=== PATIENT | male | born 1990 | race Two or more races ===

== ENCOUNTER 2016-06-09 15:42 | Emergency (ER) | payer OTHER ==
[~2016-06-09] VITALS: Ht 162.6 cm; Wt 58.1 kg
[~2016-06-09 15:42] MED LIST: AMOXICILLIN500 MG ORAL; ANUSOL-HC25 MG RECTAL; NKM; ROBITUSSIN COU118 M4 PO; UNOBMED; [UNRECOGNIZED DRUG - OTHER] RECTAL
[2016-06-09 16:28] VITALS: BP 105/69
[2016-06-09 16:44] LABS: BASOPHILS % (AUTO) 1.9 % (0.0-2.0); EOSINOPHILS % (AUTO) 0.8 % (0.0-3.0); LYMPHOCYTES % (AUTO) 31.2 % (20.0-45.0); MEAN CORPUSCULAR VOLUME 86 FL (80-99); MEAN PLATELET VOLUME 7.1 FL (6.5-10.1); MONOCYTES % (AUTO) 10.4 % (1.0-10.0); NEUTROPHILS % (AUTO) 55.7 % (45.0-75.0); PLATELET COUNT 231 K/UL (150-450); RED CELL DISTRIBUTION WIDTH 15.7 % (11.6-14.8)
[2016-06-09 16:51] LABS: ALANINE AMINOTRANSFERASE 17 U/L (3-41); ALBUMIN/GLOBULIN RATIO 1.2 (1.0-2.7); ANION GAP 18 (5-15); ASPARTATE AMINO TRANSFERASE 20 U/L (5-40); CALCIUM 9.1 mg/dL (8.6-10.2); CARBON DIOXIDE 20 mEQ/L (20-30); CHLORIDE 96 mEQ/L (98-107); CREATININE 0.8 mg/dL (0.7-1.2); GLOMERULAR FILTRATION RATE > 60 mL/min (>60); HEMOLYSIS 37; POTASSIUM 3.9 mEQ/L (3.4-4.9); SODIUM 134 mEQ/L (135-145); TOTAL PROTEIN 7.1 g/dL (6.6-8.7); TROPONIN I < 0.30 ng/mL (<=0.30)
[2016-06-09 17:07] LABS: BILIRUBIN,DIRECT 0.3 mg/dL (0.1-0.3)
[2016-06-09 17:14] LABS: MEAN CORPUSCULAR HEMOGLOBIN 25.8 PG (27.0-31.0); MEAN CORPUSCULAR HGB CONC 33.3 G/DL (32.0-36.0)
[2016-06-09 17:51] LABS: CKMB < 1.5 ng/mL (< 6.7)
[2016-06-09 17:56] VITALS: BP 106/75
[2016-06-09 18:02] VITALS: BP 106/75
--- NOTE | 2016-06-10 00:44 | Emergency Room Report ---
History of Present Illness General Chief Complaint: Dyspnea/Respdistress Source: Patient Present Illness HPI The patient is a 25-year-old male who presented after increased difficulty breathing. The patient had a known history of cyanotic heart disease status post repair. Patient cannot state what kind of surgery he had previously. The patient states he normally uses oxygen however he had run out of his oxygen tanks. Allergies: Coded Allergies: Pork (Verified Allergy, Unknown, 06/09/16) Patient History Reviewed Nursing Documentation: PMH: Agreed, PSxH: Agreed Nursing Documentation-PMH Hx Cardiac Problems: Yes - Heart surgery 1999 Review of Systems All Other Systems: negative except mentioned in HPI Physical Exam Vital Signs Date Time Temp Pulse Resp B/P Pulse Ox O2 Delivery O2 Flow Rate FiO2 06/09/16 15:50 100 20 105/69 81 Nasal Cannula 2.0 06/09/16 16:28 98.0 Sp02 EP Interpretation: reviewed, normal General Appearance: normal inspection, well appearing, no apparent distress, alert, GCS 15 Head: atraumatic ENT: normal ENT inspection, hearing grossly normal, normal voice Neck: normal inspection, full range of motion, supple, no bony tend Respiratory: normal inspection, lungs clear, normal breath sounds, no respiratory distress, no retraction, no wheezing Cardiovascular #1: regular rate, rhythm, no edema Gastrointestinal: normal inspection, normal bowel sounds, non tender, soft, no guarding, no hernia Genitourinary: no CVA tenderness Musculoskeletal: normal inspection, back normal, normal range of motion Neurologic: normal inspection, alert, oriented x3, responsive, public works manager III-XII nml as tested, speech normal Psychiatric: normal inspection, judgement/insight normal, mood/affect normal Skin: normal inspection, normal color, no rash Medical Decision Making Diagnostic Impression: Primary Impression: Respiratory distress Additional Impression: Congenital heart disease ER Course The patient presented for shortness of breath.Differential included but was not limited to anemia, pneumonia, pneumothorax, myocardial infarction, pericardial effusion, congestive heart failure, acidosis. Because of complexity of patient' s case laboratory testing and imaging studies were ordered. The patient was noted to be polycythemic consistent with his prior history of cardiac disease. The patient started on supplemental oxygen. the patient was offered admission.The patient was noted to have a low oxygen saturation which did not resolve with supplemental oxygen. The patient appears to have some cyanotic heart disease which is unclear of type .The patient was advised risk benefits alternatives of leaving AGAINST MEDICAL ADVICE and he indicated understanding and all questions are answered patient still continued want to leave and signed AGAINST MEDICAL ADVICE. Despite risks including but not limited to disability and worsening of current lifestyle. Labs Test 06/09/16 16:20 White Blood Count 6.0 K/UL (4.8-10.8) Red Blood Count 9.60 M/UL (4.70-6.10) Hemoglobin 24.8 G/DL (14.2-18.0) Hematocrit 74.4 % (42.0-52.0) Mean Corpuscular Volume 86 FL (80-99) Mean Corpuscular Hemoglobin 25.8 PG (27.0-31.0) Mean Corpuscular Hemoglobin Concent 33.3 G/DL (32.0-36.0) Red Cell Distribution Width 15.7 % (11.6-14.8) Platelet Count 231 K/UL (150-450) Mean Platelet Volume 7.1 FL (6.5-10.1) Neutrophils (%) (Auto) 55.7 % (45.0-75.0) Lymphocytes (%) (Auto) 31.2 % (20.0-45.0) Monocytes (%) (Auto) 10.4 % (1.0-10.0) Eosinophils (%) (Auto) 0.8 % (0.0-3.0) Basophils (%) (Auto) 1.9 % (0.0-2.0) Sodium Level 134 mEQ/L (135-145) Potassium Level 3.9 mEQ/L (3.4-4.9) Chloride Level 96 mEQ/L (98-107) Carbon Dioxide Level 20 mEQ/L (20-30) Anion Gap 18 (5-15) Blood Urea Nitrogen 14 mg/dL (7-23) Creatinine 0.8 mg/dL (0.7-1.2) Estimat Glomerular Filtration Rate > 60 mL/min (>60) Glucose Level 119 mg/dL (74-106) Calcium Level 9.1 mg/dL (8.6-10.2) Total Bilirubin 1.7 mg/dL (0.0-1.2) Direct Bilirubin 0.3 mg/dL (0.1-0.3) Aspartate Amino Transf (AST/SGOT) 20 U/L (5-40) Alanine Aminotransferase (ALT/SGPT) 17 U/L (3-41) Alkaline Phosphatase 84 U/L (40-129) Total Creatine Kinase 56 U/L (38-174) Creatine Kinase MB < 1.5 ng/mL (< 6.7) Creatine Kinase MB Relative Index Troponin I < 0.30 ng/mL (<=0.30) Pro-B-Type Natriuretic Peptide 174 pg/mL (0-125) Total Protein 7.1 g/dL (6.6-8.7) Albumin 3.9 g/dL (3.5-5.2) Globulin 3.2 g/dL Albumin/Globulin Ratio 1.2 (1.0-2.7) EKG Diagnostic Results Rate: normal Rhythm: NSR ST Segments: no acute changes Rhythm Strip Diag. Results EP Interpretation: yes Rhythm: NSR, no PVC's, no ectopy Chest X-Ray Diagnostic Results EP Interpretation: No Findings: no effusion, no pneumothorax, no acute cardiopulmonary disease Number of Views: 1 Last Vital Signs Date Time Temp Pulse Resp B/P Pulse Ox O2 Delivery O2 Flow Rate FiO2 06/09/16 18:02 98.0 79 20 106/75 85 Room Air 2.0 Status: unchanged Disposition: AGAINST MEDICAL ADVICE Condition: Serious Referrals: NON PHYSICIAN (PCP) Jeancarlos Palmer Jun 10, 2016 00:44
--- NOTE | 2016-06-10 13:03 | Diagnostic Imaging Report ---
Indication: Dyspnea Comparison: None A single view chest radiograph was obtained. Findings: Abnormal right paratracheal density demonstrated. Patient has had prior mediastinal surgery with surgical clips noted. There is a single sternotomy projected over the upper sternum. The heart is mildly enlarged. Orientation of the aorta is difficult to ascertain on this exam. The aorta may be right-sided. Suggest correlation with previous cross sectional exams. Bones are unremarkable. Impression: Abnormal configuration of the upper mediastinum. 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 Evidence of prior mediastinal surgery. No pneumonia or other acute process.
--- NOTE | 2016-06-11 15:17 | Cardiology Report ---
APPROVED REPORT EKG Measurement Heart [id number] Suspect arm lead reversal Sinus tachycardia biatrial enlargement Abnormal ECG
== END 2016-06-09 18:30 | disposition left against medical advice (07) ==
LOC: EMR 16:42
DX: R06.00 Dyspnea, unspecified (principal); Q24.9 Congenital malformation of heart, unspecified
CPT/HCPCS: 36415; 71010; 80053; 82248; 82550; 82553; 83880; 84484; 85025; 93005; 99283

== ENCOUNTER 2016-07-18 10:36 | Emergency (ER) | payer OTHER ==
[~2016-07-18] VITALS: Ht 162.6 cm; Wt 58.5 kg
[2016-07-18 10:45] VITALS: BP 105/70
[2016-07-18] MEDS ORDERED: ASPIR 8181 MG ORAL (10:49)
[2016-07-18 11:36] VITALS: BP 106/58
--- NOTE | 2016-07-18 12:18 | Diagnostic Imaging Report ---
Indication: Chest pain Technique: One view of the chest Comparison: 06/09/2016 Findings: Right paratracheal opacity, possibly a right-sided aortic arch, is again demonstrated. Surgical clips are seen projected over the mediastinum and within the left axilla. The lungs and pleural spaces are clear. The heart size is normal. Findings are unchanged Impression: Findings as noted. No definite acute process
--- NOTE | 2016-07-19 09:12 | Emergency Room Report ---
History of Present Illness General Chief Complaint: Chest Pain Source: Patient Present Illness HPI Patient present with complaints of left upper chest wall pain States that he has had this before Patient has significant past history With previous surgery and ischemic heart disease Patient reports being on oxygen regularly Denies any pleurisy denies any vomiting He reports that when he grabbed the outer part of his upper chest he feels the pain Also feels the pain into the front scapular area On the left flank area Denies any fall or trauma Denies any fevers or chills denies any cough or shortness of breath Allergies: Coded Allergies: Pork (Verified Allergy, Unknown, 06/09/16) Patient History Past Medical History: see triage record Pertinent Family History: none Reviewed Nursing Documentation: PMH: Agreed, PSxH: Agreed Nursing Documentation-PMH Hx Cardiac Problems: Yes - Heart surgery 1999, Congenital heart disease Review of Systems All Other Systems: negative except mentioned in HPI Physical Exam Vital Signs Date Time Temp Pulse Resp B/P Pulse Ox O2 Delivery O2 Flow Rate FiO2 07/18/16 10:45 98.1 74 19 105/70 84 Room Air 07/18/16 10:45 15.0 Sp02 EP Interpretation: reviewed, abnormal - Low General Appearance: well appearing, no apparent distress Head: normocephalic, atraumatic Eyes: bilateral eye EOMI, bilateral eye PERRL ENT: hearing grossly normal, normal pharynx, TMs + canals normal, uvula midline Neck: full range of motion, supple, no meningismus, no bony tend Respiratory: lungs clear, normal breath sounds, no rhonchi, no respiratory distress, no retraction, no accessory muscle use Cardiovascular #1: normal peripheral pulses, regular rate, rhythm, no edema, systolic murmur - holosystolic Gastrointestinal: normal bowel sounds, non tender, soft, no mass, no organomegaly, non-distended, no guarding, no hernia, no pulsatile mass, no rebound Genitourinary: no CVA tenderness Musculoskeletal: normal inspection Neurologic: oriented x3, responsive, headlight assembler III-XII nml as tested, motor strength/ tone normal, sensory intact Psychiatric: mood/affect normal Skin: normal color, no rash, warm/dry, palpation normal Lymphatic: normal inspection, no adenopathy Medical Decision Making Diagnostic Impression: Primary Impression: Chest pain ER Course Patient has significant underlying disease Initially the pulse ox is low and this is concerning However upon review of his previous presentations patient has always had low oxygenation Also he reports that he is always in the mid 80 to low 90s on pulse ox Denies any shortness of breath Given his discomfort sounds to be likely muscle skeletal/mechanical However given the significant underlying disease Other differentials such as pulmonary embolism pneumothorax, ACS pathology needs to be entertained patient states that he feels better at this time He has no pain Does not want to have further blood work obtained initial EKG showed concerning findings with the T waves he did appear to be somewhat more pronounced than previous Chest x-ray did not show any acute disease I discussed this with the patient He essentially asked for a off work note, so he can rest And reports that if he feels any worse he will return I did discuss with them at length, that with a CAT scan imaging or other further workup, emergency diagnoses can be missed Patient is fairly well aware of his diagnoses and medical conditions, and understands that he is refusing any further workup And will have close followup outpatient reevaluation , , EKG Diagnostic Results Rate: normal Rhythm: NSR ST Segments: other - Nonspecific ST and T-wave changes, concerning T waves as well Rhythm Strip Diag. Results EP Interpretation: yes Rate: 88 Rhythm: NSR, no PVC's, no ectopy Chest X-Ray Diagnostic Results EP Interpretation: Yes Findings: no consolidation, no effusion, no pneumothorax, other - Similar to previous Number of Views: 1 Last Vital Signs Date Time Temp Pulse Resp B/P Pulse Ox O2 Delivery O2 Flow Rate FiO2 07/18/16 11:36 79 27 106/58 85 Room Air 07/18/16 10:45 98.3 15.0 Status: improved Disposition: HOME, SELF-CARE Condition: Improved Departure Forms: Return to Work Return to Work in (Days): 2 Return to Work Date: Jul 20, 2016 Patient Instructions: Nonspecific Chest Pain Additional Instructions: Patient is provided with the discharge instructions notified to follow up with primary doctor in the next 2-3 days otherwise return to the er with any worsening symptoms. Please note that this report is being documented using Chronicity technology. This can lead to erroneous entry secondary to incorrect interpretation by the dictating instrument. BLAKE PAGE D.O. Jul 19, 2016 09:12
== END 2016-07-18 11:40 | disposition home or self-care (01) ==
LOC: EMR 10:55
DX: R07.89 Other chest pain (principal)
CPT/HCPCS: 71010; 99283

== ENCOUNTER 2016-07-28 10:53 | Emergency (ER) | payer OTHER ==
[~2016-07-28] VITALS: Ht 162.6 cm; Wt 59.4 kg
[~2016-07-28 10:53] MED LIST changes: +ASPIR 8181 MG ORAL
[2016-07-28 11:34] VITALS: BP 102/68
--- NOTE | 2016-07-28 12:40 | Diagnostic Imaging Report ---
Indication: Headache Technique: Contiguous 5 mm thick transaxial imaging of the head obtained in a Siemens Sensation [address] scanner. Soft tissue and bone windows generated. Total Dose length Product (DLP): [address] Dose Index Volume (CTDIvol): 70.38 mGy Comparison: none Findings: The size and configuration of the cortical sulci, basal cisterns, and ventricles are within normal limits for age. There is no mass effect, midline shift, or edema identified. There is no evidence of abnormal intra-axial or extra-axial fluid collections. The bones and soft tissues are unremarkable. No contrast was administration intravenously for this examination. However there is clearly vascular enhancement present. This indicates recent intravenous contrast administration, perhaps at another facility. The presence of contrast material precludes diagnosis of subarachnoid bleed. Intracranial hemorrhage is not excludable. Impression: No mass effect, edema or acute bleed. Limited evaluation given the presence of intravascular contrast. The CT scanner at [facility] is accredited by the [employer] and the scans are performed using protocols designed to limit radiation exposure to as low as reasonably achievable to attain images of sufficient resolution adequate for diagnostic evaluation.
[2016-07-28] MEDS ORDERED: Metoclopramide 10mg/2ml Inj IVP ONE (13:00)
[2016-07-28] MEDS ORDERED: DiphenhydrAMINE 50mg/ml Inj IVP ONE (13:00)
[2016-07-28] MEDS ORDERED: Ketorolac 30mg Inj IV ONE (13:00)
[2016-07-28 14:11] LABS: BASOPHILS % (AUTO) 1.6 % (0.0-2.0); EOSINOPHILS % (AUTO) 3.2 % (0.0-3.0); LYMPHOCYTES % (AUTO) 32.2 % (20.0-45.0); MEAN CORPUSCULAR VOLUME 85 FL (80-99); MEAN PLATELET VOLUME 8.9 FL (6.5-10.1); MONOCYTES % (AUTO) 9.7 % (1.0-10.0); NEUTROPHILS % (AUTO) 53.3 % (45.0-75.0); PLATELET COUNT 212 K/UL (150-450); WHITE BLOOD COUNT 4.8 K/UL (4.8-10.8)
[2016-07-28 14:20] LABS: ALANINE AMINOTRANSFERASE 21 U/L (3-41); ALBUMIN/GLOBULIN RATIO 1.3 (1.0-2.7); ANION GAP 18 (5-15); ASPARTATE AMINO TRANSFERASE 23 U/L (5-40); CALCIUM 9.2 mg/dL (8.6-10.2); CARBON DIOXIDE 20 mEQ/L (20-30); CHLORIDE 100 mEQ/L (98-107); CREATININE 0.8 mg/dL (0.7-1.2); GLOMERULAR FILTRATION RATE > 60 mL/min (>60); HEMOLYSIS 36; POTASSIUM 4.5 mEQ/L (3.4-4.9); SODIUM 138 mEQ/L (135-145); TOTAL PROTEIN 7.1 g/dL (6.6-8.7)
[2016-07-28 14:26] LABS: MEAN CORPUSCULAR HEMOGLOBIN 27.2 PG (27.0-31.0); MEAN CORPUSCULAR HGB CONC 33.3 G/DL (32.0-36.0); RED BLOOD COUNT 9.04 M/UL (4.70-6.10)
[2016-07-28 14:32] LABS: BILIRUBIN,DIRECT 0.2 mg/dL (0.1-0.3)
--- NOTE | 2016-07-28 14:39 | Emergency Room Report ---
History of Present Illness General Chief Complaint: Headache Source: Patient, Medical Record Present Illness HPI 25 YO M with known? polycythemia presents with headache, frontal 6/10, non- radiating, 3-4x a week for "months." Patient has known chronically elevated Hb/ Hct. States headache occurs with "red eyes." Denies blurry vision, change in vision, neck pain, fever/chills. Was told to go for specialized phlebtomy but hasnt followed up yet. Denies other medical problems, medications. Not taking any OTC meds at home. Allergies: Coded Allergies: Pork (Verified Allergy, Unknown, 06/09/16) Patient History Past Medical History: other Past Surgical History: none Pertinent Family History: none Social History: Denies: alcohol use, drug use, smoking Immunizations: UTD Reviewed Nursing Documentation: PMH: Agreed, PSxH: Agreed Nursing Documentation-PMH Hx Cardiac Problems: Yes - Heart surgery 1999, Congenital heart disease Review of Systems All Other Systems: negative except mentioned in HPI Physical Exam Vital Signs Date Time Temp Pulse Resp B/P Pulse Ox O2 Delivery O2 Flow Rate FiO2 07/28/16 11:17 98.1 91 16 102/68 96 Room Air Sp02 EP Interpretation: reviewed, normal General Appearance: normal inspection, well appearing, no apparent distress, alert, GCS 15, non-toxic Head: normocephalic, atraumatic Eyes: bilateral eye EOMI, bilateral eye PERRL, bilateral eye other - bilateral injected conjuntiva ENT: normal ENT inspection, hearing grossly normal, normal voice Neck: normal inspection, full range of motion, supple, no bony tend Respiratory: normal inspection, lungs clear, normal breath sounds, no respiratory distress, no retraction, no wheezing Cardiovascular #1: regular rate, rhythm, no edema Gastrointestinal: normal inspection, normal bowel sounds, non tender, soft, no guarding, no hernia Genitourinary: no CVA tenderness Musculoskeletal: normal inspection, back normal, normal range of motion, Migel' s Sign negative Neurologic: normal inspection, alert, oriented x3, responsive, front office administrator III-XII nml as tested, motor strength/tone normal, speech normal Psychiatric: normal inspection, judgement/insight normal, mood/affect normal Skin: normal inspection, normal color, no rash Lymphatic: normal inspection Medical Decision Making Diagnostic Impression: Primary Impression: Headache Qualified Codes: G44.219 - Episodic tension-type headache, not intractable Additional Impression: Elevated hemoglobin ER Course 25 YO M with ?known PCV presents with chronic headache for many months. VSS. Afebrile Low suspicion for SAH or meningitis given well appearance, absence of focal neuro deficits, absence of meningismus, normal vital signs, and duration and intensity of headache, and known PCV as more likely cause PO Meds given with improvement Refused IV meds CBC shows elevated Hb/Hct. Platelets and Leuks normal. CMP normal Headache resolved Neuro exam serially negative for focal deficits Vitals stable on discharge F/up with heel sewer for referral to phlebetomy center for tx of PCV DC home Last Vital Signs Date Time Temp Pulse Resp B/P Pulse Ox O2 Delivery O2 Flow Rate FiO2 07/28/16 11:34 98.1 91 16 102/68 96 Room Air Status: improved Disposition: HOME, SELF-CARE Condition: Improved Additional Instructions: - Your Hb/Hct today is: 9/24.6 - You need to go for phlebotomy at specialized center as soon as possible JAYY CARRERA M.D. Jul 28, 2016 14:39
[2016-07-28 14:43] VITALS: BP 99/62
[2016-07-28 14:45] VITALS: BP 99/62
== END 2016-07-28 14:47 | disposition home or self-care (01) ==
LOC: EMR 11:50
DX: G44.219 Episodic tension-type headache, not intractable (principal); D58.2 Other hemoglobinopathies; Z91.018 Allergy to other foods; Q24.9 Congenital malformation of heart, unspecified
CPT/HCPCS: 36415; 70450; 80053; 82248; 85025; 96372; 99284; J2405; J2765

== ENCOUNTER 2016-10-20 00:26 | Emergency (ER) | payer OTHER ==
[~2016-10-20] VITALS: Ht 162.6 cm; Wt 55.8 kg
[2016-10-20] MEDS ORDERED: Ketorolac 30mg Inj IV ONE (01:00)
[2016-10-20 01:12] LABS: APPEARANCE,URINE CLEAR; KETONES,URINE NEGATIVE (NEGATIVE); LEUKOCYTE ESTERASE ,URINE 1+ (NEGATIVE); NITRITE,URINE NEGATIVE (NEGATIVE); PH,URINE 5 (4.5-8.0); PROTEIN,URINE 3+ (NEGATIVE); UROBILINOGEN,URINE NORMAL MG/DL (0.0-1.0)
[2016-10-20 01:44] LABS: BACTERIA,URINE FEW /HPF; FINE GRANULAR CASTS,URINE 15-20 /LPF; SQUAMOUS EPITHELIAL CELL,UR FEW /LPF (NONE/OCC)
[2016-10-20 01:45] LABS: AMORPHOUS SEDIMENT,UR MODERATE /LPF
[2016-10-20 01:50] LABS: ALANINE AMINOTRANSFERASE 23 U/L (3-41); ALBUMIN/GLOBULIN RATIO 1.2 (1.0-2.7); ANION GAP 20 (5-15); ASPARTATE AMINO TRANSFERASE 25 U/L (5-40); CALCIUM 9.5 mg/dL (8.6-10.2); CARBON DIOXIDE 23 mEQ/L (20-30); CHLORIDE 98 mEQ/L (98-107); CREATININE 0.9 mg/dL (0.7-1.2); GLOMERULAR FILTRATION RATE > 60 mL/min (>60); HEMOLYSIS 39; LIPASE 15 U/L (< 60); POTASSIUM 4.2 mEQ/L (3.4-4.9); SODIUM 141 mEQ/L (135-145); TOTAL PROTEIN 8.2 g/dL (6.6-8.7)
[2016-10-20 02:30] VITALS: BP 109/56
[2016-10-20] MEDS ORDERED: ZOFRAN ODT4 MG ORAL (02:48)
--- NOTE | 2016-10-20 02:48 | Emergency Room Report ---
History of Present Illness General Chief Complaint: Abdominal Pain Source: Patient Present Illness HPI Is a 25-year-old male with history of congenital heart disease status post surgery as a baby. He said his heart rate is always around 100 or above. Oxygenation is usually in the mid 80 percentile. Patient presents with chief complaint of abdominal pain with vomiting and diarrhea. Onset for one day. He thinks that he may have had food poisoning. Pain is crampy in nature. No fever or chills. No cough or congestion. Vomiting is nonbloody and nonbilious. Diarrhea is watery. Allergies: Coded Allergies: Pork (Verified Allergy, Unknown, 10/20/16) Patient History Past Medical History: see triage record, old chart reviewed Past Surgical History: other Pertinent Family History: none Social History: Denies: smoking Immunizations: other Reviewed Nursing Documentation: PMH: Agreed, PSxH: Agreed Nursing Documentation-PMH Past Medical History: No History, Except For Hx Cardiac Problems: Yes - Heart surgery 1999, Congenital heart disease, High hemoglobin Review of Systems Eye: Denies: blurred vision, eye pain ENT: Denies: ear pain, nose congestion, throat swelling Respiratory: Denies: cough, shortness of breath Cardiovascular: Denies: chest pain, palpitations Gastrointestinal: Reports: abdominal pain, diarrhea, nausea, vomiting Musculoskeletal: Denies: back pain, joint pain Skin: Denies: rash Neurological: Denies: headache, numbness Endocrine: Denies: increased thirst, increased urine Hematologic/Lymphatic: Denies: easy bruising All Other Systems: negative except mentioned in HPI Physical Exam Vital Signs Date Time Temp Pulse Resp B/P Pulse Ox O2 Delivery O2 Flow Rate FiO2 10/20/16 00:32 98.4 119 16 113/72 80 Room Air vitals with tachycardia Sp02 EP Interpretation: abnormal General Appearance: well appearing, no apparent distress, alert Head: normocephalic, atraumatic Eyes: bilateral eye EOMI, bilateral eye PERRL ENT: hearing grossly normal, normal pharynx Neck: full range of motion, supple, no meningismus Respiratory: chest non-tender, lungs clear, normal breath sounds Cardiovascular #1: regular rate, rhythm, no murmur Gastrointestinal: normal bowel sounds, non tender, no mass, no organomegaly, no bruit, non-distended Musculoskeletal: back normal, gait/station normal, normal range of motion, other - fingers with clubbing Neurologic: alert, oriented x3 Psychiatric: mood/affect normal Skin: warm/dry Medical Decision Making Diagnostic Impression: Primary Impression: Abdominal pain Qualified Codes: R10.9 - Unspecified abdominal pain ER Course Patient presents with abdominal pain and vomiting and diarrhea. Most likely gastroenteritis. No evidence of obstruction. He felt better now. After IV fluid his heart rate in the 90s. He sleeping comfortably. We'll discharge home. He has history of high hemoglobin secondary to his congenital heart disease. Lab Results Impression labs at baseline Last Vital Signs Date Time Temp Pulse Resp B/P Pulse Ox O2 Delivery O2 Flow Rate FiO2 10/20/16 01:47 99 19 85 Room Air 10/20/16 00:32 98.4 Status: improved Disposition: HOME, SELF-CARE Condition: Stable Scripts Ondansetron Odt* (ZOFRAN ODT*) 4 Mg Tab.rapdis 4 MG ORAL Q6H Y for Nausea & Vomiting, #10 TAB 0 Refills Prov: SONY SINGH M.D. 10/20/16 Referrals: Alannah ROBINS,REFERRING (PCP) Patient Instructions: Viral Gastroenteritis, Adult Additional Instructions: Followup with your DrAnita in 2 to 3 days. Return if symptom worsen. SONY SINGH M.D. October 20, 2016 02:48
[2016-10-20 02:55] VITALS: BP 112/62
[2016-10-20 03:11] LABS: BASOPHILS % (AUTO) 0.9 % (0.0-2.0); EOSINOPHILS % (AUTO) 1.4 % (0.0-3.0); LYMPHOCYTES % (AUTO) 7.2 % (20.0-45.0); MEAN CORPUSCULAR HEMOGLOBIN 31.6 PG (27.0-31.0); MEAN CORPUSCULAR HGB CONC 35.7 G/DL (32.0-36.0); MEAN CORPUSCULAR VOLUME 89 FL (80-99); MEAN PLATELET VOLUME 7.1 FL (6.5-10.1); MONOCYTES % (AUTO) 5.8 % (1.0-10.0); NEUTROPHILS % (AUTO) 84.8 % (45.0-75.0); PLATELET COUNT 140 K/UL (150-450); RED BLOOD COUNT 7.47 M/UL (4.70-6.10); RED CELL DISTRIBUTION WIDTH 15.4 % (11.6-14.8)
[2016-10-20 03:24] LABS: BILIRUBIN,DIRECT 0.3 mg/dL (0.1-0.3)
== END 2016-10-20 02:55 | disposition home or self-care (01) ==
LOC: EMR 00:55
DX: R10.9 Unspecified abdominal pain (principal); R11.10 Vomiting, unspecified; R19.7 Diarrhea, unspecified; Z91.018 Allergy to other foods; Z86.79 Personal history of other diseases of the circulatory system
CPT/HCPCS: 36415; 80053; 81003; 82248; 83690; 85025; 96360; 96374; 96375; 99284; J1885; J2405

== ENCOUNTER 2017-05-09 14:52 | Emergency (ER) | payer OTHER ==
[~2017-05-09] VITALS: Ht 162.6 cm; Wt 58.5 kg
[~2017-05-09 14:52] MED LIST changes: +ZOFRAN ODT4 MG ORAL
[2017-05-09] MEDS ORDERED: Augmentin 875mg Tab ORAL ONE (15:30)
[2017-05-09] MEDS ORDERED: AUGMENTIN 875-1 EAC1 ORAL (15:34)
[2017-05-09 15:40] VITALS: BP 114/71
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
== END 2017-05-09 15:45 | disposition home or self-care (01) ==
LOC: EMR 15:45
DX: S40.811A Abrasion of right upper arm, initial encounter (principal); S50.811A Abrasion of right forearm, initial encounter; W50.3XXA Accidental bite by another person, initial encounter; Y92.89 Other specified places as the place of occurrence of the external cause
CPT/HCPCS: 99283

== ENCOUNTER 2017-07-03 15:27 | Emergency (ER) | payer SELFPAY ==
[~2017-07-03] VITALS: Ht 162.6 cm; Wt 57.2 kg
[~2017-07-03 15:27] MED LIST changes: +AUGMENTIN 875-1 EAC1 ORAL
[2017-07-03 15:35] VITALS: BP 118/72
[2017-07-03] MEDS ORDERED: ALBUTEROL SULF8.5 GM INH (15:52)
[2017-07-03] MEDS ORDERED: PREDNISONE20 MG ORAL (15:52)
[2017-07-03] MEDS ORDERED: Albuterol/Ipratropium 3ml neb HHN ONE (16:00)
[2017-07-03 16:07] VITALS: BP 118/72
--- NOTE | 2017-07-04 15:51 | Emergency Room Report ---
History of Present Illness General Chief Complaint: Upper Respiratory Illness Source: Patient, Medical Record Present Illness HPI Patient is a 26 year old male who presented after gradual onset of sore throat and cough. Patient denies increased difficulty with breathing. 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 He denies increased dyspnea on exertion or orthopnea. He reported increased nasal congestion and cough. He reports normally low oxygen saturation and high hemoglobin. Allergies: Coded Allergies: Pork (Verified Allergy, Unknown, 10/20/16) Patient History Past Medical History: see triage record Reviewed Nursing Documentation: PMH: Agreed, PSxH: Agreed Nursing Documentation-PM Past Medical History: No History, Except For Hx Cardiac Problems: Yes - Heart surgery 2000, Congenital heart disease, High hemoglobin Review of Systems All Other Systems: negative except mentioned in HPI Physical Exam Vital Signs Date Time Temp Pulse Resp B/P (MAP) Pulse Ox O2 Delivery O2 Flow Rate FiO2 07/03/17 15:29 98.8 108 19 118/72 79 Room Air General Appearance: well appearing, no apparent distress, alert, GCS 15 Head: normocephalic, atraumatic ENT: hearing grossly normal, normal voice Neck: full range of motion, supple Respiratory: normal breath sounds, no respiratory distress, speaking full sentences Cardiovascular #1: regular rate, rhythm, no edema Gastrointestinal: normal inspection, normal bowel sounds, non tender, no mass Musculoskeletal: normal inspection, no calf tenderness Neurologic: normal inspection, alert, oriented x3, responsive, assembler seat III-XII nml as tested, normal gait Psychiatric: mood/affect normal Skin: no rash Medical Decision Making Diagnostic Impression: Primary Impression: Bronchitis Additional Impression: Congenital heart disease ER Course Patient presented for cough. Differential diagnosis included but was not limited to bronchitis, pneumonia, pulmonary embolism, pericarditis, asthma, foreign body. Patient given prescription for prednisone, albuterol.The patient is advised to follow up with primary care doctor in 1-2 days. Patient is advised to return if any worsening condition or if any changes in status that are concerning. This report is dictated with [employer] world language teacher software which may occasionally lead to discrepancies related to use of this software. Last Vital Signs Date Time Temp Pulse Resp B/P (MAP) Pulse Ox O2 Delivery O2 Flow Rate FiO2 07/03/17 16:10 105 16 87 Room Air 07/03/17 16:07 98.8 118/72 Status: improved Disposition: HOME, SELF-CARE Condition: Stable Scripts Albuterol Sulfate* (ALBUTEROL SULFATE MDI*) 8.5 Gm Hfa.aer.ad 2 PUFF INH Q6H, #1 EA 0 Refills Prov: Jeancarlos Palmer 07/03/17 Prednisone* (PREDNISONE*) 20 Mg Tablet 40 MG ORAL DAILY, #10 TAB Prov: Jeancarlos Palmer 07/03/17 Referrals: NOT CHOSEN IPA/MD,REFERRING (PCP) Patient Instructions: Acute Bronchitis Jeancarlos Palmer Jul 04, 2017 15:51
== END 2017-07-03 16:22 | disposition home or self-care (01) ==
LOC: EMR 15:57
DX: J40 Bronchitis, not specified as acute or chronic (principal); Z98.890 Other specified postprocedural states
CPT/HCPCS: 94640; 94664; 99284; J7512; J7620

== ENCOUNTER 2019-06-03 17:34 | Emergency (ER) | payer OTHER ==
[~2019-06-03] VITALS: Ht 162.6 cm; Wt 57.6 kg
[~2019-06-03 17:34] MED LIST changes: +ALBUTEROL SULF8.5 GM INH; +PREDNISONE20 MG ORAL
[2019-06-03 18:00] VITALS: BP 123/83
--- NOTE | 2019-06-03 18:39 | Emergency Room Report ---
History of Present Illness General Chief Complaint: Allergies Source: Patient Present Illness HPI 28 YO male presents to the ED c/o itchy watery eyes with nasal congestion x 3 days. No response to Benadryl. Denies visual changes or decreased vision. PT. reports sneezing. HE reports sinus pressure MELÉNDEZ's. He denies purulent drainage or discharge from the eye. Patient denies pain around the eye or pain with movements of the eye. He denies fevers, chills, sore throat, cough, neck pain or stiffness or nausea/ vomiting. Patient denies suspicion for foreign body in his eye he reports itching sensation is intermittent. He reports some erythema of the eyes as well as lower lids of the eyes bilaterally. He denies pain. Pt. reports difficulty breathing out of the left side of his nose x 1 hour. No swelling of the lips or tongue. No rashes. Allergies: Coded Allergies: Pork (Verified Allergy, Unknown, 10/20/16) Patient History Past Medical History: see triage record Past Surgical History: none Pertinent Family History: none Reviewed Nursing Documentation: PMH: Agreed; PSxH: Agreed Nursing Documentation-PMH Past Medical History: No Stated History Hx Cardiac Problems: Yes - CONGENITAL HEART DISEASE Review of Systems All Other Systems: negative except mentioned in HPI Physical Exam Vital Signs Date Time Temp Pulse Resp B/P (MAP) Pulse Ox O2 Delivery O2 Flow Rate FiO2 06/03/19 17:50 98.1 97 14 123/83 (96) 78 Room Air Sp02 EP Interpretation: reviewed, normal General Appearance: no apparent distress, alert, GCS 15, non-toxic Head: normocephalic, atraumatic Eyes: bilateral eye normal inspection, bilateral eye PERRL, bilateral eye EOMI , bilateral eye lid inflammation, bilateral eye other - conjunctival injection bilaterally. increased lacrimation noted on the left eye. no photophobia. NO d/ c noted ENT: hearing grossly normal, normal pharynx, normal voice, uvula midline, moist mucus membranes, nasal congestion - left nare not patent at this time., other - no swelling of the lips or tongue. Neck: full range of motion, no meningismus, no bony tend Respiratory: lungs clear, normal breath sounds, no wheezing, speaking full sentences Cardiovascular #1: regular rate, rhythm Musculoskeletal: normal range of motion, gait/station normal, non-tender Neurologic: alert, motor strength/tone normal, oriented x3, sensory intact, responsive, speech normal Psychiatric: judgement/insight normal Skin: no rash, normal color, normal inspection Lymphatic: no adenopathy Medical Decision Making PA Attestation Dr. Norton Is my supervising Physician whom patient management has been discussed with. Diagnostic Impression: Primary Impression: Allergic conjunctivitis and rhinitis Qualified Codes: H10.12 - Acute atopic conjunctivitis, left eye; J30.9 - Allergic rhinitis, unspecified ER Course 28 YO male presents to the ED c/o itchy watery eyes with nasal congestion x 3 days. No response to Benadryl. Denies visual changes or decreased vision. PT. reports sneezing. HE reports sinus pressure MELÉNDEZ's. He denies purulent drainage or discharge from the eye. Patient denies pain around the eye or pain with movements of the eye. He denies fevers, chills, sore throat, cough, neck pain or stiffness or nausea/ vomiting. Patient denies suspicion for foreign body in his eye he reports itching sensation is intermittent. He reports some erythema of the eyes as well as lower lids of the eyes bilaterally. He denies pain. Pt. reports difficulty breathing out of the left side of his nose x 1 hour. No swelling of the lips or tongue. No rashes. Ddx considered but are not limited to: allergic conjunctivitis, corneal abrasion , acute glaucoma, globe rupture, FB, Corneal Ulcer, conjunctivitis. Iridis, orbital cellulitis,keratitis, sinusitis Vital signs: are WNL, pt. is afebrile H&PE are most consistent with: allergic conjunctivitis, and acute sinusitis- pt. does not meet criteria for abx rx. no evidence of ST facial/orbital cellulitis. ORDERS: none at this time. ED INTERVENTIONS: none at this time. DISCHARGE: At this time pt. is stable for d/c to home. Will provide printed patient care instructions, and any necessary prescriptions. Care plan and follow up instructions have been discussed with the patient prior to discharge. Last Vital Signs Date Time Temp Pulse Resp B/P (MAP) Pulse Ox O2 Delivery O2 Flow Rate FiO2 06/03/19 18:00 98.1 82 14 123/83 78 Room Air Disposition: HOME, SELF-CARE Condition: Stable Scripts Oxymetazoline HCl (Afrin) 15 Ml [place] 2 SPRAY NASAL TWICE A DAY, #15 SPRAY Do not use for more than 3 consecutive days Prov: Soumya Chapa 06/03/19 Cetirizine Hcl/Pseudoephedrine (ZYRTEC-D TABLET) 1 Each Tab.er.12h 1 EACH ORAL Q12HR for 10 Days, #20 TAB Prov: Soumya Chapa 06/03/19 Olopatadine Hcl (PATADAY) 2.5 Ml Drops 1 DRP OP DAILY, #2.5 ML Prov: Soumya Chapa 06/03/19 Referrals: NON PHYSICIAN (PCP) Alannah Uriostegui [facility]. [facility] Patient Instructions: Allergies Additional Instructions: Take medications as directed. Follow up with a Primary Care Provider in 3-5 days, even if your symptoms have resolved. --Please review list of primary care clinics, if you do not already have a primary care provider Return sooner to ED if new symptoms occur, or current symptoms become worse. - Please note that this Emergency Department Report was dictated using [employer] or nut farmworker technology software, occasionally this can lead to erroneous entry secondary to interpretation by the dictation equipment. Soumya Chapa Jun 03, 2019 18:39
[2019-06-03] MEDS ORDERED: ZYRTEC-D TABLE1 EACH ORAL (18:40)
[2019-06-03] MEDS ORDERED: AFRIN NASAL SPR30 ML NASAL (18:40)
[2019-06-03] MEDS ORDERED: PATADAY2.5 ML OP (18:40)
[2019-06-03 19:20] VITALS: BP 123/83
== END 2019-06-03 19:20 | disposition home or self-care (01) ==
LOC: EMR 18:15
DX: H10.12 Acute atopic conjunctivitis, left eye (principal); J30.9 Allergic rhinitis, unspecified; I51.9 Heart disease, unspecified; Z91.018 Allergy to other foods
CPT/HCPCS: 99282